=== PATIENT | male | born 1985 | race Caucasian/White ===

== ENCOUNTER 2016-12-02 02:10 | Emergency (ER) | payer OTHER, SELFPAY ==
[2016-12-02 02:18] VITALS: BP 148/114
[2016-12-02] MEDS ORDERED: Lidocaine 1% 50 ML MDV INJECT ONE (02:27)
[2016-12-02] MEDS ORDERED: Diphtheria,Pertussis(Acell),Tetanus Vaccine 0.5 ML SDV IM ONE (02:27)
--- NOTE | 2016-12-02 02:27 | EDM.PDOC ---
ED HPI GENERAL MEDICAL PROBLEM - General Chief Complaint: Upper Extremity Injury/Pain Stated Complaint: Laceration to right hand Time Seen by Provider: 12/02/16 02:20 - History of Present Illness INITIAL COMMENTS - FREE TEXT/NARRATIVE: 31-year-old male presents emergency room after injuring his right hand. Shortly before arrival the patient fell into the sidewalk that had some glass on it, cutting his right hand. The patient has been drinking tonight but is otherwise cooperative patient denies any other injuries associated with this mishap. Past medical history: Unremarkable last tetanus shot uncertain - Related Data Allergies Allergy/AdvReac Type Severity Reaction Status Date / Time bupropion [From Wellbutrin] Allergy Hives Verified 12/02/16 02:18 Home Meds: Home Meds Sulfamethoxazole/Trimethoprim [Bactrim Ds Tablet] 1 each PO Q12H #14 tablet [Rx] Past Medical History - Past Surgical History Musculoskeletal Surgical History: Reports: Other (See Below) Other Musculoskeletal Surgeries/Procedures:: wrist and leg sx Social & Family History - Family History Family Medical History: Noncontributory - Tobacco Use Smoking Status *Q: Never Smoker - Recreational Drug Use Recreational Drug Use: No Review of Systems - Review of Systems Review Of Systems: See Below Constitutional: Reports: No Symptoms Respiratory: Reports: No Symptoms Cardiovascular: Reports: No Symptoms GI/Abdominal: Reports: No Symptoms ED EXAM, GENERAL - Physical Exam Exam: See Below Exam Limited By: Intoxication General Appearance: Alert, No Apparent Distress Head: Atraumatic, Normocephalic Neck: Normal Inspection, Supple, Non-Tender, Full Range of Motion Respiratory/Chest: No Respiratory Distress, Lungs Clear, Normal Breath Sounds Cardiovascular: Regular Rate, Rhythm, No Edema, No Murmur Extremities: Other (Patient has lacerations over the right hand at the metacarpal phalangeal joint of the ring finger and the other laceration starts over the ulnar aspect of the metacarpal phalangeal joint extends through the webspace to the radial aspect of the metacarpal phalangeal joint of the ring finger . Neurovascular status of the digits is entirely within normal limits. Flexion and extension at the metacarpophalangeal joints is normal at the proximal interphalangeal joints is normal and the distal interphalangeal joints normal) Neurological: Alert, Oriented ED TRAUMA EXTREMITY PROCEDURES - Laceration/Wound Repair Right Hand Local Anesthesia - Lidocaine (Xylocaine): 1% Plain Local Anesthetic Volume: 5cc Exploration/Debridement/Repair: Wound Explored, In a Bloodless Field, Explored to Base Tetanus Status Addressed: Yes (This was addressed and his tetanus status updated.) Complications: No Progress/Comments: Laceration #1 was 3 cm in length very irregular multiple oblique angles to thick skin this was approximated with 4 simple sutures of 4-0 nylon and 1 horizontal mattress suture of 4-0 nylon yielding pretty good wound approximation extra care was taken not to involve any tendon structures. Laceration #2 was over the ring finger metacarpal phalangeal joint dorsal surface this was approximated with 2 horizontal mattress stitches and a simple stitch length of this was 2 cm Complications: None Patient tolerated the procedure without difficulty. Course - Vital Signs Last Recorded V/S: Last Vital Signs Temp 36.8 C 12/02/16 02:15 Pulse 108 H 12/02/16 02:15 Resp 16 12/02/16 02:15 BP 148/114 H 12/02/16 02:15 Pulse Ox 96 12/02/16 02:15 - Orders/Labs/Meds Orders: Active Orders 24 hr Category Date Time Status Vaccines to be Administered [RC] PER UNIT ROUTINE Care 12/02/16 02:28 Ordered Meds: Medications Discontinued Medications Generic Name Dose Route Start Last Admin Trade Name Freq PRN Reason Stop Dose Admin Diphtheria/Tetanus/Acell Pertussis 0.5 ml 12/02/16 02:27 12/02/16 02:37 Adacel IM 12/02/16 02:28 0.5 ml .ONCE ONE Administration Lidocaine HCl 50 ml 12/02/16 02:27 12/02/16 02:37 Xylocaine 1% INJECT 12/02/16 02:28 50 ml ONETIME ONE Administration - Re-Assessments/Exams Free Text/Narrative Re-Assessment/Exam: 12/02/16 02:32 Patient declines x-ray examination. With repeat questioning about this explaining the pros of an x-ray he still refuses the x-ray he is willing to have a tetanus shot and have this repaired. There is the possibility of a foreign body in the wound that may or may not show up on x-ray despite our best efforts to find these sometimes they can be missed and cause problems down the road. This was also explained to the patient. Departure - Departure Time of Disposition: 03:17 Disposition: Home, Self-Care 01 Clinical Impression: Laceration of right hand - Discharge Information Prescriptions: Sulfamethoxazole/Trimethoprim [Bactrim Ds Tablet] 1 each PO Q12H #14 tablet Additional Instructions: Return to the emergency room with any questions or problems or worsening problems. You have a couple lacerations to right hand that will take some time to heal. Minimize any heavy lifting or strenuous activity such as squeezing your fingers tightly or doing any heavy lifting. Keep your hand completely clean and dry for the next 24 hours after 24 hours you can let water gently rolled over this stitched up area then gently dab dry. You been started on Bactrim DS, this is an antibiotic take one twice daily until all gone. Follow-up at the [facility] on Friday or Friday for a wound check. Follow- up at the [facility] in 14 days for suture removal. - My Orders Last 24 Hours: My Active Orders 12/02/16 02:28 Vaccines to be Administered [RC] PER UNIT ROUTINE - Assessment/Plan Last 24 Hours: My Active Orders 12/02/16 02:28 Vaccines to be Administered [RC] PER UNIT ROUTINE
[2016-12-02] MEDS ORDERED: Sulfamethoxazole/Trimethoprim 800-160 MG Tab PO ONE (03:07)
== END 2016-12-02 03:25 | disposition home or self-care (01) ==
LOC: JD.ED 02:10
DX: S61.411A Laceration without foreign body of right hand, initial encounter (principal); Z88.8 Allergy status to other drugs, medicaments and biological substances; Z23 Encounter for immunization; W10.1XXA Fall (on)(from) sidewalk curb, initial encounter
CPT/HCPCS: 12002; 90471; 90715; 99283; A9270; 99282-25

== ENCOUNTER 2016-12-18 21:53 | Emergency (ER) | payer SELFPAY ==
[2016-12-18 22:05] VITALS: BP 140/118
== END 2016-12-18 22:24 | disposition home or self-care (01) ==
LOC: JD.ED 21:53
DX: Z48.02 Encounter for removal of sutures (principal)

== ENCOUNTER 2017-01-22 11:35 | Emergency (ER) | payer OTHER, SELFPAY ==
[2017-01-22] MEDS ORDERED: LORazepam 2 MG/ML MDV IVPUSH ONE (12:05)
[2017-01-22] MEDS ORDERED: Sodium Chloride 0.9% 2,000 ML IV ONE (12:05)
[2017-01-22] MEDS ORDERED: Magnesium Sulfate/Water 2 GM in Premix Bag 1 BAG IV ONE (12:05)
[2017-01-22] MEDS ORDERED: chlordiazePOXIDE 25 MG Cap PO ONE (12:05)
[2017-01-22] MEDS ORDERED: Folic Acid 1 MG Tab PO ONE (12:05)
[2017-01-22] MEDS ORDERED: Thiamine 100 MG Tab PO ONE (12:05)
[2017-01-22] MEDS ORDERED: Sodium Chloride 0.9% 10 ML Syringe FLUSH PRN (12:05)
[2017-01-22] MEDS ORDERED: Propranolol 80 MG Cap.ER PO ONE (12:11)
--- NOTE | 2017-01-22 12:20 | EDM.PDOCBH ---
ED HPI GENERAL MEDICAL PROBLEM - General Chief Complaint: Drug or Alcohol Abuse Stated Complaint: ALCOHOL DETOX Time Seen by Provider: 01/22/17 11:53 Source of Information: Reports: Patient History Limitations: Reports: No Limitations - History of Present Illness INITIAL COMMENTS - FREE TEXT/NARRATIVE: Patient is a 31-year-old male who presents to the ED wishing to be detoxed from alcohol and drugs. Patient states he's been consuming alcohol for the past 17 years. Over the past year he notes drinking alcohol every day except for 9 days. These were not in a row. States he is attempted to detox from alcohol but does not make it past day 2. He's never been admitted for detox nor has he ever undergone treatment. He drinks vodka daily Center 50 mils. If this is not available he'll drink anything else. In addition he is use multiple drugs including marijuana, cocaine, methamphetamines, and mushrooms to name a few. He last used marijuana this past weekend. His last drink of alcohol was at 7:30 this morning. He is done with it and he wants help. Patient states she's had seizures in the past but not from alcohol detox. Denies any visual or auditory hallucinations, suicidal ideations or thoughts. He is very anxious about going to this process. He needs help he can do it on his own. Denies any chest pain, shows breath, nausea/vomiting, abdominal pain get, dysuria, rash, or any additional neurological complaints. He has no additional past medical history and currently taking no medications. - Related Data Allergies Allergy/AdvReac Type Severity Reaction Status Date / Time bupropion [From Wellbutrin] Allergy Hives Verified 01/22/17 11:50 Home Meds: Home Meds Ondansetron [Zofran ODT] 4 mg PO Q6H PRN #12 tab.dis 01/22/17 [Rx] Propranolol HCl [Inderal LA] 80 mg PO QAM #10 cap.sa.24h 01/22/17 [Rx] chlordiazePOXIDE [Librium] 25 mg PO ASDIRECTED #18 cap 01/22/17 [Rx] Past Medical History - Past Health History Medical/Surgical History: Denies Medical/Surgical History Psychiatric History: Reports: Addiction, Depression, PTSD - Past Surgical History Musculoskeletal Surgical History: Reports: Other (See Below) Other Musculoskeletal Surgeries/Procedures:: wrist and leg sx Social & Family History - Family History Family Medical History: Noncontributory - Tobacco Use Smoking Status *Q: Current Every Day Smoker Years of Tobacco use: 15 Packs/Tins Daily: 1 - Caffeine Use Caffeine Use: Reports: Soda - Recreational Drug Use Recreational Drug Use: Yes Drug Use in Last 12 Months: Yes Recreational Drug Type: Reports: Cocaine, Marijuana/Hashish, Methamphetamine ED ROS GENERAL - Review of Systems Review Of Systems: See Below Constitutional: Reports: Decreased Appetite. Denies: Fever, Chills, Malaise, Weakness, Fatigue HEENT: Reports: No Symptoms Respiratory: Denies: Shortness of Breath, Cough, Sputum Cardiovascular: Denies: Chest Pain, Dyspnea on Exertion, Palpitations, Syncope GI/Abdominal: Denies: Abdominal Pain, Constipation, Diarrhea, Nausea, Vomiting : Reports: Discharge, Other (History of exposure to a female with chlamydia.) . Denies: Dysuria Musculoskeletal: Reports: No Symptoms Skin: Denies: Rash Neurological: Reports: No Symptoms Psychiatric: Reports: Anxiety, Cravings. Denies: Hallucinations, Homicidal Ideation, Suicidal Ideation ED EXAM, BEHAVIORAL HEALTH - Physical Exam Exam: See Below Exam Limited By: No Limitations General Appearance: Alert, WD/WN, Anxious Eye Exam: Bilateral Eye: EOMI, Nystagmus (Horizontal present), PERRL Ears: Normal External Exam, Hearing Grossly Normal Nose: Normal Inspection Throat/Mouth: Normal Inspection, Normal Oropharynx, Normal Voice, No Airway Compromise Head: Atraumatic, Normocephalic Neck: Normal Inspection, Supple, Non-Tender Respiratory/Chest: No Respiratory Distress, Lungs Clear, Normal Breath Sounds, No Accessory Muscle Use, Chest Non-Tender Cardiovascular: Normal Peripheral Pulses, Regular Rate, Rhythm, No Murmur GI/Abdominal: Normal Bowel Sounds, Soft, No Distention Back Exam: Normal Inspection Neurological: Alert, CN II-XII Intact, Normal Cognition, No Motor/Sensory Deficits, Oriented x 3 Psychiatric: Alert, Normal Cognition, Normal Mood, Oriented, Other (Anxious). No: Homicidal Thoughts, Suicidal Plan, Suicidal Thoughts, Auditory Hallucinations, Visual Hallucinations Skin Exam: Warm, Dry, Intact, Normal color COURSE, BEHAVIORAL HEALTH COMP - Course Vital Signs: Last Vital Signs Temp 97.8 F 01/22/17 11:45 Pulse 84 01/22/17 11:45 Resp 16 01/22/17 11:45 BP Pulse Ox 94 L 01/22/17 11:45 Orders, Labs, Meds: Laboratory Tests 01/22/17 01/22/17 01/22/17 Range/Units 11:57 11:57 11:57 WBC 6.47 (4.23-9.07) K/mm3 RBC 5.06 (4.63-6.08) M/mm3 Hgb 16.5 (13.7-17.5) gm/L Hct 48.2 (40.1-51.0) % MCV 95.3 H (79.0-92.2) fl MCH 32.6 H (25.7-32.2) pg MCHC 34.2 (32.2-35.5) g/dl RDW Std Deviation 45.1 H (35.1-43.9) fL Plt Count 252 (163-337) K/mm3 MPV 9.9 (9.4-12.3) fl Neut % (Auto) 67.9 (34.0-67.9) % Lymph % (Auto) 23.3 (21.8-53.1) % [place] % (Auto) 7.1 (5.3-12.2) % Eos % (Auto) 0.9 (0.8-7.0) Baso % (Auto) 0.6 (0.1-1.2) % Neut # (Auto) 4.39 (1.78-5.38) K/mm3 Lymph # (Auto) 1.51 (1.32-3.57) K/mm3 [place] # (Auto) 0.46 (0.30-0.82) K/mm3 Eos # (Auto) 0.06 (0.04-0.54) K/mm3 Baso # (Auto) 0.04 (0.01-0.08) K/mm3 PT 10.1 (8.0-13.0) SECONDS INR 0.93 Sodium 144 (136-145) mEq/L Potassium 3.9 (3.5-5.1) mEq/L Chloride 108 H (98-107) mEq/L Carbon Dioxide 25 (21-32) mEq/L Anion Gap 14.9 (5-15) BUN 7 (7-18) mg/dL Creatinine 0.9 (0.7-1.3) mg/dL Est Cr Clr Drug Dosing TNP Estimated GFR (MDRD) > 60 (>60) mL/min BUN/Creatinine Ratio 7.8 L (14-18) Glucose 105 (74-106) mg/dL Calcium 9.0 (8.5-10.1) mg/dL Total Bilirubin 0.7 (0.2-1.0) mg/dL AST 42 H (15-37) U/L ALT 37 (16-63) U/L Alkaline Phosphatase 63 (46-116) U/L Total Protein 7.7 (6.4-8.2) g/dl Albumin 4.4 (3.4-5.0) g/dl Globulin 3.3 gm/dL Albumin/Globulin Ratio 1.3 (1-2) Lipase 231 (73-393) U/L TSH 3rd Generation 0.888 (0.358-3.74) uIU/mL Urine Color (Yellow) Urine Appearance (Clear) Urine pH (5.0-8.0) Ur Specific [place] (1.005-1.030) Urine Protein (Negative) Urine Glucose (UA) (Negative) Urine Ketones (Negative) Urine Occult Blood (Negative) Urine Nitrite (Negative) Urine Bilirubin (Negative) Urine Urobilinogen (0.2-1.0) Ur Leukocyte Esterase (Negative) Urine RBC (0-5) /hpf Urine WBC (0-5) /hpf Ur Epithelial Cells (0-5) /hpf Amorphous Sediment (NOT SEEN) /hpf Urine Bacteria (FEW) /hpf Fine Granular Casts (0-5) /lpf Urine Mucus (FEW) /hpf Urine Opiates Screen (NEGATIVE) Ur Buprenorphine Scrn (NEGATIVE) Ur Oxycodone Screen (NEGATIVE) Urine Methadone Screen (NEGATIVE) Ur Propoxyphene Screen (NEGATIVE) Ur Barbiturates Screen (NEGATIVE) Ur Tricyclics Screen (NEGATIVE) Ur Phencyclidine Scrn (NEGATIVE) Ur Amphetamine Screen (NEGATIVE) U Methamphetamines Scrn (NEGATIVE) U Benzodiazepines Scrn (NEGATIVE) U Cocaine Metab Screen (NEGATIVE) U Marijuana (THC) Screen (NEGATIVE) Ethyl Alcohol 0.24 (0.00) gm% C trachomatis DNA (PCR) N gonorrhoeae DNA (PCR) 01/22/17 01/22/17 01/22/17 Range/Units 14:06 14:06 15:20 WBC (4.23-9.07) K/mm3 RBC (4.63-6.08) M/mm3 Hgb (13.7-17.5) gm/L Hct (40.1-51.0) % MCV (79.0-92.2) fl MCH (25.7-32.2) pg MCHC (32.2-35.5) g/dl RDW Std Deviation (35.1-43.9) fL Plt Count (163-337) K/mm3 MPV (9.4-12.3) fl Neut % (Auto) (34.0-67.9) % Lymph % (Auto) (21.8-53.1) % [place] % (Auto) (5.3-12.2) % Eos % (Auto) (0.8-7.0) Baso % (Auto) (0.1-1.2) % Neut # (Auto) (1.78-5.38) K/mm3 Lymph # (Auto) (1.32-3.57) K/mm3 [place] # (Auto) (0.30-0.82) K/mm3 Eos # (Auto) (0.04-0.54) K/mm3 Baso # (Auto) (0.01-0.08) K/mm3 PT (8.0-13.0) SECONDS INR Sodium (136-145) mEq/L Potassium (3.5-5.1) mEq/L Chloride (98-107) mEq/L Carbon Dioxide (21-32) mEq/L Anion Gap (5-15) BUN (7-18) mg/dL Creatinine (0.7-1.3) mg/dL Est Cr Clr Drug Dosing Estimated GFR (MDRD) (>60) mL/min BUN/Creatinine Ratio (14-18) Glucose (74-106) mg/dL Calcium (8.5-10.1) mg/dL Total Bilirubin (0.2-1.0) mg/dL AST (15-37) U/L ALT (16-63) U/L Alkaline Phosphatase (46-116) U/L Total Protein (6.4-8.2) g/dl Albumin (3.4-5.0) g/dl Globulin gm/dL Albumin/Globulin Ratio (1-2) Lipase (73-393) U/L TSH 3rd Generation (0.358-3.74) uIU/mL Urine Color Yellow (Yellow) Urine Appearance Clear (Clear) Urine pH 7.5 (5.0-8.0) Ur Specific [place] 1.025 (1.005-1.030) Urine Protein Trace H (Negative) Urine Glucose (UA) Negative (Negative) Urine Ketones Negative (Negative) Urine Occult Blood Negative (Negative) Urine Nitrite Negative (Negative) Urine Bilirubin Negative (Negative) Urine Urobilinogen 0.2 (0.2-1.0) Ur Leukocyte Esterase Negative (Negative) Urine RBC 0-5 (0-5) /hpf Urine WBC 0-5 (0-5) /hpf Ur Epithelial Cells 0-5 (0-5) /hpf Amorphous Sediment Moderate H (NOT SEEN) /hpf Urine Bacteria Few (FEW) /hpf Fine Granular Casts 0-5 (0-5) /lpf Urine Mucus Few (FEW) /hpf Urine Opiates Screen Negative (NEGATIVE) Ur Buprenorphine Scrn Negative (NEGATIVE) Ur Oxycodone Screen Negative (NEGATIVE) Urine Methadone Screen Negative (NEGATIVE) Ur Propoxyphene Screen Negative (NEGATIVE) Ur Barbiturates Screen Negative (NEGATIVE) Ur Tricyclics Screen Negative (NEGATIVE) Ur Phencyclidine Scrn Negative (NEGATIVE) Ur Amphetamine Screen Negative (NEGATIVE) U Methamphetamines Scrn Negative (NEGATIVE) U Benzodiazepines Scrn Negative (NEGATIVE) U Cocaine Metab Screen Negative (NEGATIVE) U Marijuana (THC) Screen Presumptive positive H (NEGATIVE) Ethyl Alcohol (0.00) gm% C trachomatis DNA (PCR) Not detected N gonorrhoeae DNA (PCR) Not detected Medications Discontinued Medications Generic Name Dose Route Start Last Admin Trade Name Freq PRN Reason Stop Dose Admin Chlordiazepoxide HCl 25 mg 01/22/17 12:05 01/22/17 12:41 Librium PO 01/22/17 12:06 25 mg ONETIME ONE Administration Folic Acid 1 mg 01/22/17 12:05 01/22/17 12:48 Folic Acid PO 01/22/17 12:06 1 mg ONETIME ONE Administration Magnesium Sulfate 2 gm/ Premix 50 mls @ 25 mls/hr 01/22/17 12:05 01/22/17 12: 37 IV 01/22/17 14:04 25 mls/hr ONETIME ONE Administration Sodium Chloride 2,000 mls @ 999 mls/hr 01/22/17 12:05 01/22/17 12:37 Normal Saline IV 01/22/17 14:05 999 mls/hr ONETIME ONE Administration Sodium Chloride Confirm 01/22/17 13:15 01/22/17 14:30 Normal Saline Administered 01/22/17 13:16 Not Given Dose 1,000 mls @ as directed .ROUTE .STK-MED ONE Lorazepam 1 mg 01/22/17 12:05 01/22/17 12:37 Ativan IVPUSH 01/22/17 12:06 1 mg ONETIME ONE Administration Propranolol HCl 80 mg 01/22/17 12:11 01/22/17 12:48 Inderal La PO 01/22/17 12:12 80 mg ONETIME ONE Administration Sodium Chloride 10 ml 01/22/17 12:05 01/22/17 12:40 Saline Flush FLUSH 10 ml ASDIRECTED PRN Administration Keep Vein Open Thiamine HCl 100 mg 01/22/17 12:05 01/22/17 12:41 Vitamin B-1 PO 01/22/17 12:06 100 mg ONETIME ONE Administration Re-Assessment/Re-Exam: IV established with normal saline 999mls/hr, folic acid 1 mg by mouth, lorazepam 1 mg IVP, propanolol 80 mg by mouth, thiamine 100 mg by mouth, Librium 25 mg by mouth, and magnesium 2 g IV. Initial labs and studies include CBC, chem 14, urine drug tox, EtOH, UA, PT/INR , lipase, TSH, GC, and chlamydia. EKG will be obtained as well. Labs reviewed: Sodium 144, potassium 3.9, AG 14.9, glucose 105, AST 42, ALT 37, alk phosphatase 63, lipase 231, TSH 0.888, white blood cell count 6.47, hemoglobin 16.5, MCV 95.3, platelets 252, coags PT 10.1, and INR 0.93. Serum EtOH 0.24. EKG: Sinus rhythm at a rate of 87, Q waves/T-wave inversion in lead 3. No acute ST changes noted. UA, urine GC, and urine drug tox pending. Reassessment, patient's feeling much better after receiving the above therapies. EKG revealed sinus rhythm at a rate of 87 with a QTC of 435 and FL 158. No acute ST changes noted. UA negative for infection. Urine drug tox positive for marijuana. GC is pending. 1504 Discussed patient with [facility]. They have accepted the patient into [facility] Crisis Bed. Prescriptions will be provided to the patient to sampler pickup prior to going to [facility]. Patient will require a ride. Departure - Departure Time of Disposition: 15:17 Disposition: DC/Tfer to In Rehab Fac 62 Condition: Fair Clinical Impression: Alcohol abuse - Discharge Information Prescriptions: chlordiazePOXIDE [Librium] 25 mg PO ASDIRECTED #18 cap Ondansetron [Zofran ODT] 4 mg PO Q6H PRN #12 tab.dis PRN Reason: Nausea/Vomiting Propranolol HCl [Inderal LA] 80 mg PO QAM #10 cap.sa.24h Instructions: Alcohol Use Disorder, Chemical Dependency, Alcohol Intoxication, [id number], Finding Treatment for Addiction Referrals: PCP,None [Primary Care Provider] - Additional Instructions: Take Librium 25 mg 3 times a day for 3 days, then 25 mg twice a day for 3 days, then 25 mg at night for 3 days. Will have you take Inderal long-acting 80 mg daily for 10 days. Utilize Zofran 4 mg ODT as needed every 6 hours for nausea/ vomiting. Push the fluids. Eat a balanced diet. Refrain from alcohol or recreational drug use. Return to the ED for any new or worsening symptoms.
[2017-01-22] MEDS ORDERED: Sodium Chloride 0.9% 1,000 ML ONE (13:15)
[2017-01-22 17:11] LABS: C. TRACHOMATIS BY PCR NOT DETECTED; N. GONORRHOEAE BY PCR NOT DETECTED
== END 2017-01-22 16:15 ==
LOC: JD.ED 11:35
DX: F10.10 Alcohol abuse, uncomplicated (principal); F17.210 Nicotine dependence, cigarettes, uncomplicated; F32.9 Major depressive disorder, single episode, unspecified; Z98.890 Other specified postprocedural states; Z88.8 Allergy status to other drugs, medicaments and biological substances; Y90.1 Blood alcohol level of 20-39 mg/100 ml
CPT/HCPCS: 36415; 80053; 80306; 81001; 83690; 84443; 85025; 85610; 87491; 87591; 93005; 96361; 96365; 96375; 99285; A9270; G0480; J2060; J7040; J7050; 99284; J3475